=== PATIENT | male | born 1960 | race Caucasian/White ===

== ENCOUNTER → 2017-12-03 | Day surgery (SDC) | payer BC ==
[~2017-12-03] MED LIST: CADUET 10 MG-41 EACH; FENTANYL CITRATE/PF 100MCG/2 ML INJ ONE; HYOSCYAMINE SULFATE 0.5 MG/ML AMP ONE; MIDAZOLAM HCL 2 MG/2 ML VIAL ONE; PROPOFOL IV EMULSION 10 MG/ML 50 ML VIAL ONE
--- NOTE | 2017-12-03 11:50 | Operative Report ---
DATE OF PROCEDURE: December 03, 2017 REFERRING PHYSICIAN: Dr. Mg Elizabeth PROCEDURE PERFORMED: Colonoscopy and polypectomy. INDICATIONS FOR COLONOSCOPY: Colorectal cancer screening. Positive Cologuard test. MEDICATION: Patient was done under MAC. Please see anesthesiologist's note. PROCEDURE: With the patient in the left lateral decubitus position, the flexible fiberoptic Olympus colonoscope was inserted into the rectum with ease and advanced all the way to the cecum. Diverticular disease was noted to be scattered throughout. Three polyps were snared from the cecum. The scope was then withdrawn slowly. One polyp was hot biopsied from the ascending colon. One polyp was snared from the transverse colon. One polyp was snared and 1 polyp was hot biopsied from the descending colon. One polypectomy site in the descending colon was hemoclipped prophylactically. One polyp was snared and 1 polyp was hot biopsied in the sigmoid colon. One large polyp was snared and the polypectomy site was hemoclipped times 3 in the rectum, and 1 minute polyp was hot biopsied in the rectum. The scope was then retroflexed into the distal rectum, and small internal hemorrhoids were noted, none of which was actively bleeding. The scope was then straightened out. The rectosigmoid area as well as the distal rectal area were decompressed. Scope was subsequently withdrawn. Patient tolerated the procedure well. IMPRESSION 1. Pandiverticulosis. 2. Cecal polyps times 3, snared. 3. Ascending colon polyp, hot biopsied. 4. Transverse colon polyp times 1, snared. 5. Descending colon polyps times 2, one snared and one hot biopsied. Polypectomy site hemoclipped. 6. Sigmoid colon polyps times 2, one snared and one hot biopsied. 7. Rectal polyps times 2, one large polyp snared and polypectomy site was hemoclipped times 3 and the additional polyp was hot biopsied. 8. Internal hemorrhoids, none actively bleeding. PLAN: Follow up histology. Initiate high-fiber, low-fat diet. Initiate high-fiber supplement. A total of 11 polyps were removed. Some were large. Patient will need a followup colonoscopy in 1 year. Job#: [id number] cc:MG ELIZABETH MD
== END | disposition home or self-care (01) ==
LOC: OR 07:21
PROVIDERS: ATTEND Internal Medicine Gastroenterology
DX: R19.5 Other fecal abnormalities (principal); D12.0 Benign neoplasm of cecum; D12.2 Benign neoplasm of ascending colon; D12.3 Benign neoplasm of transverse colon; D12.4 Benign neoplasm of descending colon; D12.5 Benign neoplasm of sigmoid colon; D12.8 Benign neoplasm of rectum; K57.30 Diverticulosis of large intestine without perforation or abscess without bleeding; K64.8 Other hemorrhoids; I49.1 Atrial premature depolarization; I10 Essential (primary) hypertension; Z01.810 Encounter for preprocedural cardiovascular examination; Z96.643 Presence of artificial hip joint, bilateral
CPT/HCPCS: 45384; 45385; 93005; J1980; J2250; 44391